=== PATIENT | female | born 1975 | race African-American/Black ===

== ENCOUNTER → 2016-09-11 | Outpatient (CLI) | payer MEDICAID ==
--- NOTE | 2016-09-12 07:52 | XCELERA REPORT ---
[address] [address] Lower Extremity Venous Evaluation Name: HEIDE GARZON Age: 40 yrs Gender: Female : 1975 Patient Status: Outpatient Patient Location: Study Date: 09/11/2016 04:29 PM Procedure: Color flow and duplex imaging of the veins of the right lower extremity as well as the left Common Femoral vein. Reason For Study: RLE PAIN Ordering Physician: NATALYA CEDENO CNM Performed By: Shagufta Knapp Right Sided Venous Evaluation Normal vessel filling wall to wall, compression and augmentation as well as Colour flow down to the infrageniculate veins. Left Sided Venous Evaluation The left common femoral vein is fully compressible. Spontaneous and phasic flow is present in the left common femoral vein. Interpretation Summary No duplex evidence of DVT or obstruction in the right lower extremity nor in the left Common Femoral vein. : NATALYA CEDENO CNM > Sid Rubio
== END ==
LOC: LC 16:26
PROVIDERS: ATTEND Advanced Practice Midwife
DX: M79.604 Pain in right leg (principal)
CPT/HCPCS: 93971

== ENCOUNTER 2017-01-19 17:03 | Emergency (ER) | payer MEDICAID ==
--- NOTE | 2017-01-19 17:28 | ER Document Report ---
ED Medical Screen (RME) - General Chief Complaint: Chest Pain Stated Complaint: CHEST PAIN/LEFT ARM PAIN Time Seen by Provider: 01/19/17 17:26 Mode of Arrival: Ambulatory Information source: Patient TRAVEL OUTSIDE OF THE [place] IN LAST 30 DAYS: No - HPI Patient complains to provider of: Chest pain, shortness of breath Onset: Other - 3 weeks Onset/Duration: Gradual, Persistent Quality of pain: Achy, Dull, Sharp, Stabbing Severity: Moderate Pain Level: 3 Associated Symptoms: Shortness of breath Exacerbated by: Denies Relieved by: Denies Similar symptoms previously: No Recently seen / treated by doctor: Yes Notes: 01/19/17 17:27 It is a 41-year-old female who presents to the emergency room complaining of left-sided chest pain that radiated down the left arm, with shortness of breath , symptoms are worse at nighttime when she is trying to lay down and sleep, pain is sharp and stabbing in nature with a dull ache as well, patient is currently 7-1/2 months , she is a smoker, she denies any abdominal pain or pelvic pain, no vaginal bleeding or discharge, she reports good movements, no recent traveling or sick contacts patient is a with a previous elective - Related Data Allergies/Adverse Reactions: No Known Allergies Allergy (Verified 01/19/17 17:05) Past Medical History Renal/ Medical History: Denies: Hx Peritoneal Dialysis Physical Exam - Vital signs Vitals: Temp Pulse Resp BP Pulse Ox 97.9 F 82 22 H 105/84 98 01/19/17 17:14 01/19/17 17:14 01/19/17 17:14 01/19/17 17:14 01/19/17 17:14 Course - Vital Signs Vital signs: Temp Pulse Resp BP Pulse Ox 97.9 F 82 22 H 105/84 98 01/19/17 17:14 01/19/17 17:14 01/19/17 17:14 01/19/17 17:14 01/19/17 17:14
[2017-01-19 19:17] LABS: ABSOLUTE EOSINOPHILS # (AUTO) 0.2 10^3/uL (0.0-0.6); ABSOLUTE LYMPHOCYTES (AUTO) 2.5 10^3/uL (0.5-4.7); ABSOLUTE MONOCYTES (AUTO) 0.5 10^3/uL (0.1-1.4); ABSOLUTE NEUT (AUTO) 4.7 10^3/uL (1.7-8.2); BASOPHILS % (AUTO) 0.3 % (0-2); EOSINOPHILS % (AUTO) 2.5 % (0-6); HEMOGLOBIN 12.1 g/dL (12.0-15.5); HGB HCT DIFFERENCE -0.7; LYMPHOCYTES % (AUTO) 31.6 % (13-45); MEAN CORPUSCULAR HEMOGLOBIN 26.8 pg (27.0-33.4); MEAN CORPUSCULAR HGB CONC 32.6 g/dL (32.0-36.0); MEAN CORPUSCULAR VOLUME 82 fl (80-97); RED BLOOD COUNT 4.51 10^6/uL (3.72-5.28); RED CELL DISTRIBUTION WIDTH 14.7 % (11.5-14.0); SEGMENTED NEUTROPHILS % (AUTO) 59.6 % (42-78); WHITE BLOOD COUNT 7.9 10^3/uL (4.0-10.5)
[2017-01-19 19:31] LABS: ALANINE AMINOTRANSFERASE 20 U/L (9-52); ALBUMIN 3.2 g/dL (3.5-5.0); ALKALINE PHOSPHATASE 66 U/L (38-126); ANION GAP 8 (5-19); ASPARTATE AMINO TRANSFERASE 12 U/L (14-36); BILIRUBIN,DIRECT 0.2 mg/dL (0.0-0.4); BILIRUBIN,TOTAL 0.3 mg/dL (0.2-1.3); BLOOD UREA NITROGEN 4 mg/dL (7-20); CALCIUM 9.4 mg/dL (8.4-10.2); CARBON DIOXIDE 20 mmol/L (22-30); CHLORIDE 109 mmol/L (98-107); CREATINE KINASE 53 U/L (30-135); CREATININE RESULT 0.57 mg/dL (0.52-1.25); GLUCOSE 99 mg/dL (75-110); POTASSIUM 3.9 mmol/L (3.6-5.0); SODIUM 136.8 mmol/L (137-145)
[2017-01-19 19:43] LABS: TROPONIN I < 0.012 ng/mL
--- NOTE | 2017-01-19 20:57 | RADIOLOGY REPORT (SQ) ---
EXAM DESCRIPTION: CTA CHEST COMPLETED DATE/TIME: 01/19/2017 8:32 pm REASON FOR STUDY: SOB COMPARISON: None. TECHNIQUE: CT scan of the chest performed using helical scanning technique with dynamic intravenous contrast injection. Images reviewed with lung, soft tissue and bone windows. Reconstructed coronal and sagittal MPR images reviewed. Additional 3 dimensional post-processing performed to develop Maximal Intensity Projection images ([place] P). All images stored on PACS. All CT scanners at this facility use dose modulation, iterative reconstruction, and/or weight based d osing when appropriate to reduce radiation dose to as low as reasonably achievable (ALARA). [facility]: Dose Right [facility]: CareDose [facility]: Dose Right [facility]: Teradose 4D [facility]: [employer] Technologies CONTRAST TYPE AND DOSE: 80 mL Isovue 370 RENAL FUNCTION: Creatinine 0.57 RADIATION DOSE: 42.61 mGy. LIMITATIONS: Study is limited somewhat due to streak artifact. There is suboptimal opacification of the pulmonary arteries FINDINGS: LUNGS AND PLEURA: No masses, infiltrates, pneumothorax. No pleural effusions, calcificati ons. AORTA AND GREAT VESSELS: No aneurysm or dissection. HEART: No pericardial effusion. PULMONARY ARTERIES: No emboli visualized in the main pulmonary arteries. Segmental branches are not well visualize due to suboptimal opacification and streak artifact. HILAR AND MEDIASTINAL STRUCTURES: No identified masses or abnormal nodes. HARDWARE: None in the chest. UPPER ABDOMEN: No significant findings. Limited exam. THYROID AND OTHER SOFT TISSUES: No masses. No adenopathy. BONES: No acute or significant finding. 3D MIPS: Confirm above findings. OTHER: No other significant finding. IMPRESSION: Somewhat limited study as noted above. No definite evidence for pulmonary embolic disea se. No consolidations or pleural effusions are identified. Other findings as noted above TECHNICAL DOCUMENTATION: JOB ID: [id number] Quality ID # [id number]: Final reports with documentation of one or more dose reduction techniques (e.g., Au tomated exposure control, adjustment of the mA and/or kV according to patient size, use of iterative reconstruction technique) 2010 [employer]- All Rights Reserved
--- NOTE | 2017-01-19 21:12 | EKG REPORT ---
SEVERITY:- NORMAL ECG - SINUS RHYTHM : Confirmed by: Mabel Harrington 19-Jan-2017 21:12:22
--- NOTE | 2017-01-19 21:13 | ER Document Report ---
ED General - General Chief Complaint: Chest Pain Stated Complaint: CHEST PAIN/LEFT ARM PAIN Time Seen by Provider: 01/19/17 17:26 Mode of Arrival: Ambulatory Information source: Patient Notes: 41-year-old female 1 para 0 who is approximately 30 weeks with her first presents with complaints of shortness of breath when she lays flat. Patient notes that she has had a bad taste in her mouth as well for the past few months. Patient denies any fevers or chills, denies any shortness of breath when she is sitting forward. Patient denies any actual chest pain. Patient does admit to tingling sensations in her thumb TRAVEL OUTSIDE OF THE [place] IN LAST 30 DAYS: No - HPI Onset: Just prior to arrival Onset/Duration: Sudden Quality of pain: No pain Severity: Mild Pain Level: Denies Associated symptoms: Shortness of breath Exacerbated by: Supine Relieved by: Denies Similar symptoms previously: No Recently seen / treated by doctor: No - Related Data Allergies/Adverse Reactions: No Known Allergies Allergy (Verified 01/19/17 17:05) Past Medical History - General Information source: Patient - Social History Smoking Status: Never Smoker Cigarette use (# per day): No Chew tobacco use (# tins/day): No Smoking Education Provided: No Family History: Reviewed & Not Pertinent Patient has suicidal ideation: No Patient has homicidal ideation: No Renal/ Medical History: Denies: Hx Peritoneal Dialysis Surgical Hx: Negative - Immunizations Hx Diphtheria, Pertussis, Tetanus Vaccination: Yes Review of Systems - Review of Systems Notes: REVIEW OF SYSTEMS: CONSTITUTIONAL : Denies fever, chills, or sweats. Denies recent illness. EENT: Denies eye, ear, throat, or mouth pain or symptoms. Denies nasal or sinus congestion or discharge. Denies throat, tongue, or mouth swelling or difficulty swallowing. CARDIOVASCULAR: Denies chest pain. Denies palpitations or racing or irregular heart beat. Denies ankle edema. RESPIRATORY: Shortness of breath GASTROINTESTINAL: Denies abdominal pain or distention. Denies nausea, vomiting , or diarrhea. Denies blood in vomitus, stools, or per rectum. Denies black, tarry stools. Denies constipation. Has a bad taste in her mouth GENITOURINARY: Denies difficulty urinating, painful urination, burning, frequency, blood in urine, or discharge. FEMALE GENITOURINARY: Denies vaginal bleeding, heavy or abnormal periods, irregular periods. Denies vaginal discharge or odor. MUSCULOSKELETAL: Denies back or neck pain or stiffness. Denies joint pain or swelling. SKIN: Denies rash, lesions or sores. HEMATOLOGIC : Denies easy bruising or bleeding. LYMPHATIC: Denies swollen, enlarged glands. NEUROLOGICAL: Denies confusion or altered mental status. Denies passing out or loss of consciousness. Denies dizziness or lightheadedness. Denies headache. Denies weakness or paralysis or loss of use of either side. Denies problems with gait or speech. Denies sensory loss, numbness, or tingling. Denies seizures. PSYCHIATRIC: Denies anxiety or stress. Denies depression, suicidal ideation, or homicidal ideation. ALL OTHER SYSTEMS REVIEWED AND NEGATIVE. Dictation was performed using [employer] voice recognition software PHYSICAL EXAMINATION: GENERAL: Well-appearing, well-nourished and in no acute distress. HEAD: Atraumatic, normocephalic. EYES: Pupils equal round and reactive to light, extraocular movements intact, conjunctiva are normal. ENT: Nares patent, oropharynx clear without exudates. Moist mucous membranes. NECK: Normal range of motion, supple without lymphadenopathy LUNGS: Breath sounds clear to auscultation bilaterally and equal. No wheezes rales or rhonchi. HEART: Regular rate and rhythm without murmurs ABDOMEN: gravid abdomen, no tenderness Female : deferred Musculoskeletal: Normal range of motion, no pitting or edema. No cyanosis. NEUROLOGICAL: Cranial nerves grossly intact. Normal speech, normal gait. Normal sensory, motor exams PSYCH: Normal mood, normal affect. SKIN: Warm, Dry, normal turgor, no rashes or lesions noted. Physical Exam - Vital signs Vitals: Temp Pulse Resp BP Pulse Ox 97.9 F 82 22 H 105/84 98 01/19/17 17:14 01/19/17 17:14 01/19/17 17:14 01/19/17 17:14 01/19/17 17:14 Course - Re-evaluation Re-evalutation: 01/19/17 23:17 Labwork CTA was performed to rule out any life-threatening issues, none were noted. It appears since this is a positional shortness of breath, that it is actually the baby pushing against the diaphragm. Patient when sitting forward has no complaints, I believe the bad taste in her mouth is secondary to gastric reflux, I will treat the patient with Pepcid for this. I believe the tingling in her finger is due to nerve impingement and patient agrees. Otherwise patient has no cardiac risk factors, she appears well is in no distress had negative workup otherwise. Patient is very happy with discharge After performing a Medical Screening Examination, I estimate there is LOW risk for ACUTE CORONARY SYNDROME, RESPIRATORY FAILURE, SEPSIS OR MENINGITIS, thus I consider the discharge disposition reasonable. I have reevaluated this patient multiple times and no significant life threatening changes are noted. The patient and I have discussed the diagnosis and risks, and we agree with discharging home with close follow-up. We also discussed returning to the Emergency Department immediately if new or worsening symptoms occur. We have discussed the symptoms which are most concerning (e.g., changing or worsening pain, trouble swallowing or breathing, neck stiffness, fever) that necessitate immediate return. - Vital Signs Vital signs: Temp Pulse Resp BP Pulse Ox 98.1 F 82 19 91/68 L 98 01/19/17 21:35 01/19/17 17:14 01/19/17 21:37 01/19/17 21:37 01/19/17 21:37 - Laboratory Result Diagrams: 01/19/17 18:50 01/19/17 18:50 Laboratory results interpreted by me: 01/19/17 01/19/17 18:50 18:50 MCH 26.8 L RDW 14.7 H Sodium 136.8 L Chloride 109 H Carbon Dioxide 20 L BUN 4 L AST 12 L Total Protein 6.0 L Albumin 3.2 L - Diagnostic Test Radiology reviewed: Image reviewed, Reports reviewed Discharge - Discharge Clinical Impression: SOB (shortness of breath) GERD (gastroesophageal reflux disease) Qualifiers: Esophagitis presence: with esophagitis Qualified Code(s): K21.0 - Gastro- esophageal reflux disease with esophagitis Condition: Stable Disposition: HOME, SELF-CARE Instructions: Reflux Disease (GERD) ([facility]) Additional Instructions: Follow up with your physician tomorrow for further care or return to the ED IMMEDIATELY if symptoms worsen or new concerns occur. If you cannot afford to follow up with your primary care physician a list of low cost clinics have been provided at the end of your discharge papers as well. Prescriptions: Famotidine [Pepcid 20 mg Tablet] 20 mg PO DAILY #60 tablet
[2017-01-19 21:44] VITALS: BP 91/68
== END 2017-01-19 21:40 | disposition home or self-care (01) ==
LOC: ER 17:03
DX: O99.619 Diseases of the digestive system complicating pregnancy, unspecified trimester (principal); K21.0 Gastro-esophageal reflux disease with esophagitis; O26.899 Other specified pregnancy related conditions, unspecified trimester; R06.02 Shortness of breath; R43.9 Unspecified disturbances of smell and taste; R20.2 Paresthesia of skin; Z3A.00 Weeks of gestation of pregnancy not specified
CPT/HCPCS: 36415; 71275; 80053; 82550; 82553; 84484; 85025; 93005; 93010; 99285

== ENCOUNTER 2017-03-06 16:26 | Outpatient (CLI) | payer MEDICAID ==
--- NOTE | 2017-03-06 17:41 | Non Stress Test Report ---
Non Stress Test Datetime Report Generated by CPN: 03/06/2017 17:41 DEMOGRAPHIC EGA NST: 36.6 INDICATION Indication for Study: Ordered by Provider; Other Indication for Study (NST) Other: ama VITAL SIGNS Temperature - NST: 98.3 Pulse - NST: 77 RESP - NST: 18 NBPSYS NST: 110 NBPDIA NST: 59 MONITORING Monitor Explained: Monitor Explained; Test Explained; Patient Verbalized Understanding Time on Monitor: 03/06/2017 16:43 Time off Monitor: 03/06/2017 17:07 NST Duration: 24 NST INTERVENTIONS NST Interventions: PO Hydration; Reposition Patient Physician Notified NST: C. Sherman CNM BABY A: [id number] BABY A Movement : Present Contraction Frequency : none FHR Baseline : 145 Accelerations : 15X15 Decelerations : None Variability : Moderate 6-25bpm NST Review: Meets Criteria for Reactive NST NST Review and Verified By : Scott Carbajal RN NST Results: Reactive NST REPORT Report Trigger: Send Report (Annotations: Data stored by N on behalf of user)
== END 2017-03-06 17:12 | disposition home or self-care (01) ==
LOC: LC 16:26
PROVIDERS: ATTEND Obstetrics & Gynecology
PROC: 4A1HXCZ Monitoring of Products of Conception, Cardiac Rate, External Approach (ICD-10-PCS; principal; 2017-03-06)
DX: O09.523 Supervision of elderly multigravida, third trimester (principal); Z3A.36 36 weeks gestation of pregnancy
CPT/HCPCS: 59025

== ENCOUNTER 2017-03-24 18:24 | Observation (INO) | payer BC, MEDICAID ==
[2017-03-24] MEDS ORDERED: MAG HYDROX/AL HYDROX/SIMETH SUSP 30 ML UDCUP PO PRN (19:37)
[2017-03-24] MEDS ORDERED: ACETAMINOPHEN 325 MG TABLET PO PRN (19:37)
[2017-03-24] MEDS ORDERED: ZOLPIDEM TARTRATE 5 MG TABLET PO PRN (19:37)
[2017-03-24] MEDS ORDERED: RINGERS SOLUTION,LACTATED 1,000 ML IV ONE (19:37)
[2017-03-24] MEDS ORDERED: RINGERS SOLUTION,LACTATED 1,000 ML IV PRN (19:37)
[2017-03-24] MEDS ORDERED: NORMAL SALINE 250 ML IV PRN (19:37)
[2017-03-24] MEDS ORDERED: DINOPROSTONE 10 MG VAGINAL INSERT.SR PV ONE (19:37)
[2017-03-24] MEDS ORDERED: DINOPROSTONE 10 MG VAGINAL INSERT.SR ONE (20:03)
[2017-03-24 20:12] LABS: ABSOLUTE EOSINOPHILS # (AUTO) 0.2 10^3/uL (0.0-0.6); ABSOLUTE LYMPHOCYTES (AUTO) 2.3 10^3/uL (0.5-4.7); ABSOLUTE MONOCYTES (AUTO) 0.6 10^3/uL (0.1-1.4); BASOPHILS % (AUTO) 0.4 % (0-2); EOSINOPHILS % (AUTO) 2.6 % (0-6); HEMATOCRIT 36.7 % (36.0-47.0); HEMOGLOBIN 12.3 g/dL (12.0-15.5); HGB HCT DIFFERENCE 0.2; LYMPHOCYTES % (AUTO) 28.4 % (13-45); MEAN CORPUSCULAR HEMOGLOBIN 27.6 pg (27.0-33.4); MEAN CORPUSCULAR HGB CONC 33.6 g/dL (32.0-36.0); MEAN CORPUSCULAR VOLUME 82 fl (80-97); RED BLOOD COUNT 4.47 10^6/uL (3.72-5.28); RED CELL DISTRIBUTION WIDTH 14.5 % (11.5-14.0); SEGMENTED NEUTROPHILS % (AUTO) 61.6 % (42-78)
[2017-03-24 21:03] LABS: APPEARANCE,URINE SLIGHTLY-CLOUDY; BILIRUBIN,URINE NEGATIVE (NEGATIVE); GLUCOSE, URINE NEGATIVE (NEGATIVE); KETONES,URINE TRACE mg/dL (NEGATIVE); LEUKOCYTE ESTERASE,URINE NEGATIVE (NEGATIVE); NITRITE,URINE NEGATIVE (NEGATIVE); PROTEIN,URINE NEGATIVE (NEGATIVE); UROBILINOGEN,URINE NEGATIVE mg/dL (<2.0)
[2017-03-24 21:18] LABS: URINE BARBITURATES SCREEN NEGATIVE; URINE METHADONE SCREEN NEGATIVE; URINE OPIATES LOW NEGATIVE; URINE PHENCYCLIDINE SCREEN NEGATIVE
[2017-03-24] MEDS ORDERED: ZOLPIDEM TARTRATE 5 MG TABLET ONE (23:59)
== END 2017-03-25 11:33 | disposition home or self-care (01) ==
LOC: UNDOADMOB 18:24 → INTOOBSV 18:24 → LR 18:24 → UNDODISOB 03-25 11:33
PROVIDERS: ADMIT Obstetrics & Gynecology; ATTEND Obstetrics & Gynecology
PROC: 4A0HXCZ Measurement of Products of Conception, Cardiac Rate, External Approach (ICD-10-PCS; principal; 2017-03-25)
PROC: 3E0P7GC Introduction of Other Therapeutic Substance into Female Reproductive, Via Natural or Artificial Opening (ICD-10-PCS; 2017-03-25)
DX: O61.9 Failed induction of labor, unspecified (principal); Z3A.39 39 weeks gestation of pregnancy
CPT/HCPCS: 59025; 86900; 86901; 36415; 86850; 85025; 81005; 86592; 80307; 86920; 59200; G0378 ×2; G0379; J3490

== ENCOUNTER 2017-03-27 10:31 | Outpatient (CLI) | payer BC, MEDICAID ==
--- NOTE | 2017-03-28 14:02 | Non Stress Test Report ---
Non Stress Test Datetime Report Generated by CPN: 03/28/2017 14:02 DEMOGRAPHIC EGA NST: 39.6 EGA NST: 39.4 INDICATION Indication for Study: Ordered by Provider Indication for Study: Ordered by Provider Indication for Study (NST) Other: AMA MONITORING Monitor Explained: Monitor Explained; Test Explained; Patient Verbalized Understanding Monitor Explained: Monitor Explained; Test Explained; Patient Verbalized Understanding Time on Monitor: 03/27/2017 10:29 Time on Monitor: 03/25/2017 10:25 Time off Monitor: 03/27/2017 10:56 Time off Monitor: 03/25/2017 10:45 NST Duration: 27 NST Duration: 20 NST INTERVENTIONS NST Interventions: None NST Interventions: IV Fluids; Reposition Patient Physician Notified NST: Dr. Garrett BABY A: [id number] BABY A Movement : Present Movement : Present Contraction Frequency : rare Contraction Frequency : x0 FHR Baseline : 155 FHR Baseline : 145 Accelerations : 15X15 Accelerations : 15X15 Decelerations : None Decelerations : None Variability : Moderate 6-25bpm Variability : Moderate 6-25bpm NST Review: Meets Criteria for Reactive NST NST Review: Meets Criteria for Reactive NST NST Review and Verified By : Scott Carbajal RN NST Results: Reactive NST Results: Reactive NST REPORT Report Trigger: Send Report
== END 2017-03-27 11:00 | disposition home or self-care (01) ==
LOC: LC 10:31
PROVIDERS: ATTEND Obstetrics & Gynecology
PROC: 4A1HXCZ Monitoring of Products of Conception, Cardiac Rate, External Approach (ICD-10-PCS; principal; 2017-03-27)
DX: O09.523 Supervision of elderly multigravida, third trimester (principal); Z3A.39 39 weeks gestation of pregnancy
CPT/HCPCS: 59025

== ENCOUNTER 2017-03-28 14:10 | Outpatient (CLI) | payer BC, MEDICAID ==
--- NOTE | 2017-03-28 14:49 | Non Stress Test Report ---
Non Stress Test Datetime Report Generated by CPN: 03/28/2017 14:48 DEMOGRAPHIC Test Number: 4 EGA NST: 40.0 INDICATION Indication for Study: Decreased Movement; Other Indication for Study (NST) Other: AMA MONITORING Monitor Explained: Monitor Explained; Test Explained; Patient Verbalized Understanding Time on Monitor: 03/28/2017 14:03 Time off Monitor: 03/28/2017 14:33 NST Duration: 30 NST INTERVENTIONS NST Interventions: None Physician Notified NST: Dr. Stewart BABY A Contraction Frequency : Occ FHR Baseline : 145 Accelerations : 15X15 Decelerations : None Variability : Moderate 6-25bpm NST Review: Meets Criteria for Reactive NST NST Review and Verified By : Jose Shepherd, RN NST Results: Reactive NST REPORT Report Trigger: Send Report
== END 2017-03-28 14:35 | disposition home or self-care (01) ==
LOC: LC 14:10
PROVIDERS: ATTEND Obstetrics & Gynecology
PROC: 4A1HXCZ Monitoring of Products of Conception, Cardiac Rate, External Approach (ICD-10-PCS; principal; 2017-03-28)
DX: O36.8130 Decreased fetal movements, third trimester, not applicable or unspecified (principal); O09.523 Supervision of elderly multigravida, third trimester; Z3A.40 40 weeks gestation of pregnancy
CPT/HCPCS: 59025

== ENCOUNTER 2017-04-05 19:40 | Inpatient (IN) | payer BC, MEDICAID ==
[2017-04-05] MEDS ORDERED: DINOPROSTONE 10 MG VAGINAL INSERT.SR ONE (19:57)
[2017-04-05 20:12] LABS: APPEARANCE,URINE SLIGHTLY-CLOUDY; BILIRUBIN,URINE NEGATIVE (NEGATIVE); GLUCOSE, URINE NEGATIVE (NEGATIVE); KETONES,URINE 20 mg/dL (NEGATIVE); LEUKOCYTE ESTERASE,URINE NEGATIVE (NEGATIVE); NITRITE,URINE NEGATIVE (NEGATIVE); PROTEIN,URINE NEGATIVE (NEGATIVE); URINE SPECIFIC GRAVITY 1.015; UROBILINOGEN,URINE NEGATIVE mg/dL (<2.0)
[2017-04-05] MEDS ORDERED: RINGERS SOLUTION,LACTATED 300 ML IV ONE (20:13)
[2017-04-05] MEDS ORDERED: DINOPROSTONE 10 MG VAGINAL INSERT.SR PV PRN (20:13)
[2017-04-05] MEDS ORDERED: ZOLPIDEM TARTRATE 5 MG TABLET PO ONE (20:15)
[2017-04-05 20:25] LABS: ABSOLUTE BASOPHILS # (AUTO) 0.1 10^3/uL (0.0-0.2); ABSOLUTE EOSINOPHILS # (AUTO) 0.3 10^3/uL (0.0-0.6); ABSOLUTE LYMPHOCYTES (AUTO) 2.3 10^3/uL (0.5-4.7); ABSOLUTE MONOCYTES (AUTO) 0.6 10^3/uL (0.1-1.4); ABSOLUTE NEUT (AUTO) 4.2 10^3/uL (1.7-8.2); BASOPHILS % (AUTO) 0.8 % (0-2); EOSINOPHILS % (AUTO) 3.6 % (0-6); HEMATOCRIT 38.8 % (36.0-47.0); HEMOGLOBIN 13.2 g/dL (12.0-15.5); HGB HCT DIFFERENCE 0.8; MEAN CORPUSCULAR HEMOGLOBIN 27.8 pg (27.0-33.4); MEAN CORPUSCULAR VOLUME 82 fl (80-97); MONOCYTES % (AUTO) 8.3 % (3-13); RED BLOOD COUNT 4.73 10^6/uL (3.72-5.28); RED CELL DISTRIBUTION WIDTH 14.5 % (11.5-14.0); SEGMENTED NEUTROPHILS % (AUTO) 56.3 % (42-78); WHITE BLOOD COUNT 7.5 10^3/uL (4.0-10.5)
[2017-04-05 20:26] LABS: URINE BARBITURATES SCREEN NEGATIVE; URINE METHADONE SCREEN NEGATIVE; URINE OPIATES LOW NEGATIVE; URINE PHENCYCLIDINE SCREEN NEGATIVE
[2017-04-05] MEDS ORDERED: ZOLPIDEM TARTRATE 5 MG TABLET ONE (21:00)
[2017-04-05] MEDS: RINGERS SOLUTION,LACTATED 1,000 ML IV PRN (21:01)
[2017-04-06] MEDS: RINGERS SOLUTION,LACTATED 1,000 ML IV PRN (03:58)
[2017-04-06] MEDS ORDERED: OXYTOCIN/NORMAL SALINE 20 UNIT/1,000 ML RTUINJ ONE (11:48)
[2017-04-06] MEDS: OXYTOCIN/NORMAL SALINE 20 UNIT/1,000 ML RTUINJ IV PRN (11:54)
[2017-04-06] MEDS ORDERED: NALBUPHINE HCL INJ 10 MG/1 ML AMPULE ONE (17:58)
[2017-04-06] MEDS ORDERED: NALBUPHINE HCL INJ 10 MG/1 ML AMPULE INJ ONE (17:58)
[2017-04-07] MEDS ORDERED: NALBUPHINE HCL INJ 10 MG/1 ML AMPULE INJ ONE (00:52)
[2017-04-07] MEDS ORDERED: NALBUPHINE HCL INJ 10 MG/1 ML AMPULE ONE (00:57)
[2017-04-07] MEDS ORDERED: PROMETHAZINE HCL INJ 25 MG/1 ML VIAL IV ONE (05:52)
[2017-04-07] MEDS ORDERED: MORPHINE SULFATE 10 MG/ML INJ IV ONE (05:52)
[2017-04-07] MEDS ORDERED: MORPHINE SULFATE 10 MG/ML INJ ONE ×2 (05:59→23:19)
[2017-04-07] MEDS ORDERED: PROMETHAZINE HCL INJ 25 MG/1 ML VIAL ONE (05:59)
[2017-04-07] MEDS ORDERED: CITRIC ACID/SODIUM CITRATE ORAL SOLN 15 ML UDCUP ONE ×2 (07:22→21:06)
[2017-04-07] MEDS ORDERED: CEFAZOLIN 2 GM/D5W RTU 2 GM/50 ML RTUPB IV ONE ×2 (07:22→21:06)
[2017-04-07 09:17] LABS: ABSOLUTE EOSINOPHILS # (AUTO) 0.1 10^3/uL (0.0-0.6); ABSOLUTE MONOCYTES (AUTO) 0.5 10^3/uL (0.1-1.4); ABSOLUTE NEUT (AUTO) 5.1 10^3/uL (1.7-8.2); BASOPHILS % (AUTO) 0.3 % (0-2); EOSINOPHILS % (AUTO) 1.2 % (0-6); HEMATOCRIT 37.1 % (36.0-47.0); HEMOGLOBIN 12.6 g/dL (12.0-15.5); HGB HCT DIFFERENCE 0.7; LYMPHOCYTES % (AUTO) 25.5 % (13-45); MEAN CORPUSCULAR HEMOGLOBIN 27.9 pg (27.0-33.4); MEAN CORPUSCULAR HGB CONC 34.1 g/dL (32.0-36.0); MEAN CORPUSCULAR VOLUME 82 fl (80-97); MONOCYTES % (AUTO) 6.7 % (3-13); RED BLOOD COUNT 4.53 10^6/uL (3.72-5.28); RED CELL DISTRIBUTION WIDTH 14.7 % (11.5-14.0); SEGMENTED NEUTROPHILS % (AUTO) 66.3 % (42-78); WHITE BLOOD COUNT 7.8 10^3/uL (4.0-10.5)
[2017-04-07] MEDS ORDERED: FENTANYL/BUPIVACAINE/NS/PF 200 MCG/100 ML RTUINJ EPI ONE ×2 (12:05→21:54)
[2017-04-07] MEDS ORDERED: BUPIVACAINE HCL 0.25 % INJ/PF (2.5 MG/1 ML) 30 ML VIAL ONE (12:05)
[2017-04-07] MEDS ORDERED: EPHEDRINE SULFATE INJ 50 MG/1 ML AMPULE ONE (12:05)
[2017-04-07] MEDS ORDERED: OXYTOCIN/NORMAL SALINE 0 UNIT/0 ML RTUINJ ONE (13:16)
[2017-04-07] MEDS: OXYTOCIN/NORMAL SALINE 20 UNIT/1,000 ML RTUINJ IV PRN (13:19)
[2017-04-07] MEDS ORDERED: ACETAMINOPHEN 325 MG TABLET ONE (18:20)
[2017-04-07] MEDS ORDERED: CITRIC ACID/SODIUM CITRATE ORAL SOLN 15 ML UDCUP PO PRN (21:31)
[2017-04-07] MEDS ORDERED: LIDOCAINE 2% INJ-PF (20 MG/ML) 10 ML AMPUL ONE (23:14)
[2017-04-07] MEDS ORDERED: OXYTOCIN/NORMAL SALINE 20 UNIT/1,000 ML RTUINJ ONE (23:18)
[2017-04-07] MEDS ORDERED: OXYTOCIN 10 UNIT/ML VIAL ONE ×2 (23:18→23:57)
[2017-04-07] MEDS ORDERED: FENTANYL CITRATE INJ/PF 100 MCG/2 ML AMPUL ONE (23:19)
[2017-04-07] MEDS ORDERED: MIDAZOLAM 2 MG/2 ML INJ ONE (23:19)
[2017-04-08] MEDS ORDERED: RINGERS SOLUTION,LACTATED 1,000 ML IV PRN (00:24)
[2017-04-08] MEDS ORDERED: OXYCODONE-ACETAMINOPHEN 5-325 MG TABLET PO PRN (00:24)
[2017-04-08] MEDS ORDERED: ACETAMINOPHEN 100 ML IV PRN (00:24)
[2017-04-08] MEDS ORDERED: PROMETHAZINE HCL INJ 25 MG/1 ML VIAL IV PRN (00:24)
[2017-04-08] MEDS ORDERED: MEASLES,MUMPS&RUBELLA VACC/PF 0.5 ML VIAL SUBCUT PRN (00:24)
[2017-04-08] MEDS ORDERED: SIMETHICONE 80 MG TAB.CHEW PO PRN (00:24)
[2017-04-08] MEDS ORDERED: DIPH/PERTUSS(ACELL)/TETANUS VAC/PF 0.5 ML SYR (>=10YO) IM PRN (00:24)
[2017-04-08] MEDS ORDERED: ACETAMINOPHEN 325 MG TABLET PO PRN (00:24)
[2017-04-08] MEDS ORDERED: OXYTOCIN/NORMAL SALINE 20 UNIT/1,000 ML RTUINJ IV PRN (00:24)
[2017-04-08] MEDS ORDERED: MEPERIDINE HCL/PF INJ 25 MG/1 ML DISP.SYRIN ONE (00:45)
[2017-04-08] MEDS ORDERED: MORPHINE SULFATE 10 MG/ML INJ ONE (01:03)
[2017-04-08] MEDS ORDERED: KETOROLAC TROMETHAMINE INJ/PF 30 MG/1 ML SDV ONE (01:05)
[2017-04-08] MEDS: MORPHINE SULFATE 10 MG/ML INJ IV PRN ×2 (01:09→01:22)
[2017-04-08] MEDS ORDERED: ACETAMINOPHEN 100 ML IV ONE (01:11)
[2017-04-08] MEDS ORDERED: MORPHINE SULFATE 10 MG/ML INJ IV PRN ×3 (01:23→04:04)
[2017-04-08] MEDS ORDERED: LIDOCAINE 1% INJ-PF (10 MG/ML) 30 ML SDV ONE (01:38)
[2017-04-08] MEDS ORDERED: MISOPROSTOL 0.2 MG TABLET ONE (01:38)
[2017-04-08] MEDS ORDERED: OXYTOCIN/NORMAL SALINE 20 UNIT/1,000 ML RTUINJ ONE (01:38)
[2017-04-08] MEDS ORDERED: OXYTOCIN 10 UNIT/ML VIAL ONE (01:39)
--- NOTE | 2017-04-08 01:56 | Delivery Summary ---
Del Sum A-C Datetime Report Generated by CPN: 04/08/2017 01:55 DELIVERY PERSONNEL DELIVERY PERSONNEL: ,[id number] Delivery Doctor:: Erma Garrett MD Anesthesiologist:: Mitchell Bloom MD GIFT SHOP CLERK:: John Monsivais CRNA Labor and Delivery Nurse:: Maryam Fitzgerald RNairline operations agent Nurse:: Nubia East RN Venereal Disease Control Head:: Maryam Fitzgerald RN Neonatal Nurse Practitioner:: FOUZIA Mosley Nursery Nurse:: Krissy Stewart RN Nursery Nurse:: Anel Suero RN Retail Zone Specialist/INFORMATION DEVELOPER: [facility] Retail Zone Specialist/INFORMATION DEVELOPER: ST Devin MATERNAL INFORMATION Delivery Anesthesia: Epidural Medications After Delivery: Pitocin Drip 20 Units/1000ml NSS; Other-Please Comment Meds After Delivery Comment: 1 bag with 40 units Pitocin Estimated Blood Loss (ml): 500 Maternal Complications: None LABOR SUMMARY EDC: 03/28/2017 00:00 No. Babies in Womb: 1 Attempted: No Labor Anesthesia: Epidural LABOR INFORMATION Reason for Induction: Post Dates Cervical Ripening Agents: Cervidil Oxytocin: Induction Group B Beta Strep: Negative Steroids Given: None Reason Steroids Not Administered: Not Applicable MEMBRANES Membranes Rupture Method: Spontaneous Rupture of Membranes: 04/06/2017 15:00 Length of Rupture (hr): 32.83 Amniotic Fluid Color: Light Meconium Amniotic Fluid Amount: Scant Amniotic Fluid Odor: Normal STAGES OF LABOR Stage 3 hr: 24 Stage 3 min: 0 VAGINAL DELIVERY Episiotomy: None Laceration Extension: N/A Laceration Type: None Laceration Repair: Not Applicable Sharps Count Correct: N/A CSECTION DELIVERY Primary Indication: Failed Induction Secondary Indication: N/A CSection Urgency: Non-Scheduled CSection Incidence: Primary Labor: Labor Elective: Nonelective CSection Incision: Lower Uterine Transverse BABY A INFORMATION Delivery Date/Time: 04/07/2017 23:50 Method of Delivery: Born in Route : No : N/A Forceps: N/A Vacuum Extraction: N/A Shoulder Dystocia : No PRESENTATION/POSITION BABY A Presentation: Cephalic Cephalic Presentation: Vertex Breech Presentation: N/A PLACENTA INFORMATION BABY A Placenta Delivery Time : 04/08/2017 23:50 Placenta Method of Delivery: Manual Removal Placenta Status: Delivered INFANT INFORMATION BABY A Gestational Age at Delivery: 41.2 Gestational Status: Late Term- 41- 41.6 Weeks Infant Outcome : Liveborn Infant Condition : Stable Sex: Female IDENTIFICATION BABY A Verification Date/Time: 04/07/2017 23:58 ID Band Number: [id number] Mother's Name Verified: Yes Infant RN Verifying Infant: SShaylee JosephFRANK cortes Additional Verifying Personnel: Deisy Olivares CNA WEIGHT/LENGTH BABY A Infant Birthweight (gm): 3010 Infant Weight (lb): 6 Weight (oz): 10 Infant Length (in): 19.25 Length (cm): 48.90 CORD INFORMATION BABY A No. Cord Vessels: 3 Nuchal Cord : N/A Cord Blood Taken: Yes-For Storage (Mom's Blood type +) Suction: Mouth; Nose ASSESSMENT BABY A Skin to Skin: No
--- NOTE | 2017-04-08 02:02 | OPERATIVE REPORT E ---
Operative Report NAME: HEIDE GARZON : 1975 AGE: 41Y DATE OF SURGERY: 04/07/2017 ROOM: LR200 PREOPERATIVE DIAGNOSES: 1. IUP at 41 weeks and 3 days. 2. Failure to progress. 3. Failed induction. POSTOPERATIVE DIAGNOSES: 1. IUP at 41 weeks and 3 days. 2. Failure to progress. 3. Failed induction. PROCEDURE PERFORMED: Low transverse hysterotomy section. SURGEON: LUANA FLOWERS M.D. ANESTHESIA: Dr. *------* with a spinal. FINDINGS: A female infant in cephalic presentation with Apgars of 9 and 9, weight 6 pounds 10 ounces, particulate meconium. COMPLICATIONS: None. ESTIMATED BLOOD LOSS: 600 mL. SPECIMENS REMOVED: None. PROCEDURE IN DETAIL: Patient was taken to the operating room, prepared and draped in a normal sterile fashion in the supine position with a leftward tilt. A transverse skin incision was made with a scalpel and carried through the underlying layer of fascia with the same scalpel. The fascia was excised in the midline and extended laterally with Galaviz. The fascia was dissected bluntly from the rectus muscle, and the rectus muscle was divided. The peritoneal cavity was entered bluntly with surgeon's finger fracture. With good visualization of the bladder and the uterus, the bladder blade was inserted and the hysterotomy was nicked with the scalpel and extended laterally with surgeon's finger fracture. The infant was then delivered atraumatically. The nose and mouth were suctioned with a suction bulb. The cord was clamped and cut, and the infant was handed off to awaiting pediatricians. The cord blood was collected. The placenta was removed manually. The uterus was exteriorized and cleared of clots and debris. It was noted at this time that there were 3 small fundal fibroids, serosal in appearance but they were hemostatic and had not suffered any ill effects of the procedure. The hysterotomy was then closed with 0 Monocryl in a running locked fashion. A second layer of the same suture was used to imbricate to ensure hemostasis. The uterus was then returned to the abdomen and the peritoneal cavity was cleared of clots and debris. The rectus muscle was reapproximated with 2-0 chromic using a mattress stitch. The fascia was closed with 0 Vicryl. The subcutaneous layer was closed with plain catgut. The skin was closed with 4-0 Vicryl. The patient tolerated the procedure well. Sponge, lap and needle counts were correct x2. Patient was taken to recovery in stable condition. DICTATING PHYSICIAN: LUANA FLOWERS M.D. [id number] PHY#: [id number] ID: [id number] JOB#: [id number] ACCT: [id number] cc:LUANA FLOWERS M.D. >
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
[2017-04-08] MEDS: OXYCODONE-ACETAMINOPHEN 5-325 MG TABLET PO PRN ×4 (02:56→21:29)
[2017-04-08] MEDS ORDERED: KETOROLAC TROMETHAMINE INJ/PF 30 MG/1 ML SDV IV SCH (06:00)
--- NOTE | 2017-04-08 09:45 | PDOC PROGRESS REPORT ---
Subjective-OB Subjective: Post Delivery Day: 1 41 year old. Denies any needs at this time, pain well controlled has not been up yet. Physical Exam (OB) Vital Signs: Temp Pulse Resp BP Pulse Ox 98.0 F 65 18 114/65 100 04/08/17 08:02 04/08/17 08:02 04/08/17 08:02 04/08/17 07:37 04/08/17 08:02 Intake & Output 04/07/17 04/08/17 04/09/17 06:59 06:59 06:59 Intake Total 200 400 Output Total 300 Balance -100 400 - Dressing Removed: No - op site Incision: Dressing - Lochia Lochia Amount: Small 10-25 ml Lochia Color: Rubra/Red - Abdomen Description: Tender, Soft, Round Hernia Present: No Fundal Description: Firm, Midline Fundal Height: u/u - u/2 Objective-Diagnostic Laboratory: 04/07/17 08:56 Assessment and Plan(PN) - Assessment and Plan (1) Status post primary low transverse section Is this a current diagnosis for this admission?: Yes Plan: routine post op care (2) Bipolar 1 disorder Is this a current diagnosis for this admission?: Yes Plan: d/c corporate planner - Time Spent with Patient Time with patient: Less than 15 minutes Critical Time spent with patient: Less than 15 minutes Medications reviewed and adjusted accordingly: Yes - Disposition Anticipated Discharge: Home Within: within 24 hours
[2017-04-08] MEDS: DOCUSATE SODIUM 100 MG CAPSULE PO SCH ×2 (10:03→18:12)
[2017-04-08] MEDS: PRENATAL VITAMIN W-O CA NO5/FE FUMARATE/FA CAPSULE PO SCH (10:03)
[2017-04-08] MEDS: KETOROLAC TROMETHAMINE INJ/PF 30 MG/1 ML SDV IV SCH ×2 (10:03→18:11)
[2017-04-08] MEDS: IBUPROFEN 800 MG TABLET PO SCH (23:27)
[2017-04-09] MEDS ORDERED: HYDROMORPHONE HCL INJ/PF 2 MG/ML AMPULE ONE (00:54)
[2017-04-09] MEDS ORDERED: HYDROMORPHONE HCL INJ/PF 2 MG/ML AMPULE INJ ONE (01:30)
[2017-04-09] MEDS: IBUPROFEN 800 MG TABLET PO SCH ×4 (05:30→23:23)
[2017-04-09] MEDS: OXYCODONE-ACETAMINOPHEN 5-325 MG TABLET PO PRN ×2 (05:32→17:24)
[2017-04-09 06:54] LABS: HEMATOCRIT 33.9 % (36.0-47.0); HEMOGLOBIN 11.3 g/dL (12.0-15.5); MEAN CORPUSCULAR HEMOGLOBIN 27.2 pg (27.0-33.4); MEAN CORPUSCULAR HGB CONC 33.2 g/dL (32.0-36.0); MEAN CORPUSCULAR VOLUME 82 fl (80-97); RED BLOOD COUNT 4.14 10^6/uL (3.72-5.28); RED CELL DISTRIBUTION WIDTH 14.4 % (11.5-14.0); WHITE BLOOD COUNT 12.1 10^3/uL (4.0-10.5)
[2017-04-09] MEDS: PRENATAL VITAMIN W-O CA NO5/FE FUMARATE/FA CAPSULE PO SCH (09:23)
[2017-04-09] MEDS: DOCUSATE SODIUM 100 MG CAPSULE PO SCH ×2 (09:23→17:24)
--- NOTE | 2017-04-09 12:58 | PDOC PROGRESS REPORT ---
Subjective-OB Subjective: Post Delivery Day: 41 year old. Denies any needs at this time. Pt doing well, no concerns. Reports regular diet with +flatus, light bleeding, voiding without difficulty. Baby not going home today. Physical Exam (OB) Vital Signs: Temp Pulse Resp BP Pulse Ox 98.6 F 78 18 146/88 H 100 04/09/17 11:28 04/09/17 11:28 04/09/17 11:28 04/09/17 11:28 04/09/17 11:28 Intake & Output 04/08/17 04/09/17 04/10/17 06:59 06:59 06:59 Intake Total 200 2378 400 Output Total 300 825 Balance -100 1553 400 - Dressing Removed: No - opsite dressing D&I, no drainage, swelling or redness noted Incision: Dressing - Lochia Lochia Amount: Small 10-25 ml Lochia Color: Rubra/Red - Abdomen Description: Tender, Soft Hernia Present: No Fundal Description: Firm, Midline Fundal Height: u/u - u/2 Objective-Diagnostic Laboratory: 04/09/17 06:31 04/09/17 06:31 WBC 12.1 H RBC 4.14 Hgb 11.3 L Hct 33.9 L MCV 82 MCH 27.2 MCHC 33.2 RDW 14.4 H Plt Count 225 Assessment and Plan(PN) - Assessment and Plan (1) Status post primary low transverse section Is this a current diagnosis for this admission?: Yes - Time Spent with Patient Time with patient: Less than 15 minutes Medications reviewed and adjusted accordingly: Yes - Disposition Anticipated Discharge: Home Within: within 24 hours
[2017-04-10] MEDS: OXYCODONE-ACETAMINOPHEN 5-325 MG TABLET PO PRN (00:04)
[2017-04-10] MEDS: IBUPROFEN 800 MG TABLET PO SCH ×2 (06:10→11:25)
[2017-04-10] MEDS: PRENATAL VITAMIN W-O CA NO5/FE FUMARATE/FA CAPSULE PO SCH (10:04)
[2017-04-10] MEDS: DOCUSATE SODIUM 100 MG CAPSULE PO SCH (10:04)
[2017-04-10 11:21] VITALS: BP 115/60
--- NOTE | 2017-04-10 12:58 | PDOC DISCHARGE SUMMARY ---
Final Diagnosis Discharge Date: 04/10/17 - Final Diagnosis (1) Bipolar 1 disorder Is this a current diagnosis for this admission?: Yes (2) Status post primary low transverse section Is this a current diagnosis for this admission?: Yes Discharge Data - Discharge Medication Home Medications: No Home Medications 04/05/17 Intrapartum Procedure(s): : Low Cervical, Transverse - Diagnosis Test Laboratory: Temp Pulse Resp BP Pulse Ox 98.2 F 72 16 115/60 100 04/10/17 11:20 04/10/17 11:20 04/10/17 11:20 04/10/17 11:20 04/10/17 11:20 04/05/17 04/05/17 04/07/17 19:59 20:10 08:56 RBC 4.73 4.53 Hgb 13.2 12.6 Hct 38.8 37.1 Urine Opiates Screen NEGATIVE 04/09/17 06:31 RBC 4.14 Hgb 11.3 L Hct 33.9 L Urine Opiates Screen - Discharge information/Instructions Discharge Activity: Activity As Tolerated, No Lifting Over 10 Pounds, No Lifting /Push/Pulling, Pelvic Rest, No tub bath Discharge Diet: Regular Disposition: HOME, SELF-CARE Follow up with: [facility] in: 1
== END 2017-04-10 13:38 | disposition home or self-care (01) | DRG 766 ==
LOC: LC 19:40 → LR 19:43 → 2S 04-08 02:35
PROVIDERS: ADMIT Student in an Organized Health Care Education/Training Program; ATTEND Student in an Organized Health Care Education/Training Program
PROC: 10D00Z1 Extraction of Products of Conception, Low, Open Approach (ICD-10-PCS; principal; 2017-04-07)
PROC: 3E0P7GC Introduction of Other Therapeutic Substance into Female Reproductive, Via Natural or Artificial Opening (ICD-10-PCS; 2017-04-07)
PROC: 3E033VJ Introduction of Other Hormone into Peripheral Vein, Percutaneous Approach (ICD-10-PCS; 2017-04-07)
DX: O48.0 Post-term pregnancy (principal); O62.0 Primary inadequate contractions; O99.334 Smoking (tobacco) complicating childbirth; F17.210 Nicotine dependence, cigarettes, uncomplicated; O99.344 Other mental disorders complicating childbirth; F31.9 Bipolar disorder, unspecified; Z3A.41 41 weeks gestation of pregnancy; Z37.0 Single live birth
CPT/HCPCS: 1961; 36415; 80307; 81005; 85025; 85027; 86592; 86850; 86900; 86901; 94799; J0131; J0690; J1170; J1885; J2175; J2250; J2270; J2300; J2550; J2590; J3010; J3490; J7120

== ENCOUNTER 2017-04-15 11:53 | Inpatient (IN) | payer BC, MEDICAID ==
[2017-04-15] MEDS ORDERED: MAGNESIUM SULFATE 4 GM/100 ML RTUPB IV ONE (12:34)
[2017-04-15 12:52] LABS: URINE BARBITURATES SCREEN NEGATIVE; URINE METHADONE SCREEN NEGATIVE; URINE OPIATES LOW NEGATIVE; URINE PHENCYCLIDINE SCREEN NEGATIVE
[2017-04-15 12:55] LABS: APPEARANCE,URINE SLIGHTLY-CLOUDY; BILIRUBIN,URINE NEGATIVE (NEGATIVE); GLUCOSE, URINE NEGATIVE (NEGATIVE); KETONES,URINE NEGATIVE (NEGATIVE); LEUKOCYTE ESTERASE,URINE SMALL (NEGATIVE); NITRITE,URINE NEGATIVE (NEGATIVE); PROTEIN,URINE 30 mg/dL (NEGATIVE); URINE SPECIFIC GRAVITY 1.009; UROBILINOGEN,URINE NEGATIVE mg/dL (<2.0)
[2017-04-15] MEDS ORDERED: HYDRALAZINE HCL INJ/PF 20 MG/1 ML SDV ONE ×2 (14:00→15:28)
[2017-04-15 15:01] LABS: ABSOLUTE EOSINOPHILS # (AUTO) 0.4 10^3/uL (0.0-0.6); ABSOLUTE LYMPHOCYTES (AUTO) 2.3 10^3/uL (0.5-4.7); ABSOLUTE MONOCYTES (AUTO) 0.4 10^3/uL (0.1-1.4); ABSOLUTE NEUT (AUTO) 3.3 10^3/uL (1.7-8.2); BASOPHILS % (AUTO) 0.7 % (0-2); EOSINOPHILS % (AUTO) 6.3 % (0-6); HEMATOCRIT 36.3 % (36.0-47.0); HEMOGLOBIN 12.4 g/dL (12.0-15.5); HGB HCT DIFFERENCE 0.9; LYMPHOCYTES % (AUTO) 36.4 % (13-45); MEAN CORPUSCULAR HEMOGLOBIN 27.7 pg (27.0-33.4); MEAN CORPUSCULAR HGB CONC 34.1 g/dL (32.0-36.0); MEAN CORPUSCULAR VOLUME 81 fl (80-97); MONOCYTES % (AUTO) 5.5 % (3-13); RED BLOOD COUNT 4.47 10^6/uL (3.72-5.28); RED CELL DISTRIBUTION WIDTH 14.7 % (11.5-14.0); SEGMENTED NEUTROPHILS % (AUTO) 51.1 % (42-78); WHITE BLOOD COUNT 6.4 10^3/uL (4.0-10.5)
[2017-04-15] MEDS ORDERED: IBUPROFEN 800 MG TABLET ONE ×2 (15:09→22:39)
[2017-04-15] MEDS ORDERED: IBUPROFEN 800 MG TABLET PO ONE (15:09)
[2017-04-15] MEDS ORDERED: HYDRALAZINE HCL INJ/PF 20 MG/1 ML SDV IV ONE (15:09)
[2017-04-15 15:14] LABS: ALANINE AMINOTRANSFERASE 32 U/L (9-52); ALBUMIN 3.2 g/dL (3.5-5.0); ALKALINE PHOSPHATASE 114 U/L (38-126); ANION GAP 9 (5-19); ASPARTATE AMINO TRANSFERASE 19 U/L (14-36); BILIRUBIN,DIRECT 0.3 mg/dL (0.0-0.4); BILIRUBIN,TOTAL 0.3 mg/dL (0.2-1.3); BLOOD UREA NITROGEN 10 mg/dL (7-20); CALCIUM 9.4 mg/dL (8.4-10.2); CARBON DIOXIDE 22 mmol/L (22-30); CHLORIDE 111 mmol/L (98-107); CREATININE RESULT 0.61 mg/dL (0.52-1.25); GLUCOSE 71 mg/dL (75-110); LDH 543 U/L (313-618); SODIUM 141.5 mmol/L (137-145); URIC ACID 4.2 mg/dL (2.5-7.0)
[2017-04-15] MEDS ORDERED: OXYCODONE-ACETAMINOPHEN 5-325 MG TABLET PO PRN ×2 (15:29)
[2017-04-15] MEDS ORDERED: CLONIDINE 0.1 MG/24 HR PATCH.TDWK TD ONE (16:00)
[2017-04-15] MEDS ORDERED: IBUPROFEN 800 MG TABLET PO PRN (20:10)
[2017-04-15] MEDS ORDERED: OXYCODONE-ACETAMINOPHEN 5-325 MG TABLET ONE (20:20)
[2017-04-16] MEDS ORDERED: ZOLPIDEM TARTRATE 5 MG TABLET PO ONE (00:42)
[2017-04-16] MEDS ORDERED: MAGNESIUM SULFATE 20 GM/500 ML RTUINJ IV PRN (01:31)
[2017-04-16] MEDS ORDERED: OXYCODONE-ACETAMINOPHEN 5-325 MG TABLET ONE (05:43)
[2017-04-16 06:50] LABS: ABSOLUTE BASOPHILS # (AUTO) 0.1 10^3/uL (0.0-0.2); ABSOLUTE EOSINOPHILS # (AUTO) 0.4 10^3/uL (0.0-0.6); ABSOLUTE LYMPHOCYTES (AUTO) 2.4 10^3/uL (0.5-4.7); ABSOLUTE MONOCYTES (AUTO) 0.5 10^3/uL (0.1-1.4); ABSOLUTE NEUT (AUTO) 3.6 10^3/uL (1.7-8.2); BASOPHILS % (AUTO) 0.9 % (0-2); EOSINOPHILS % (AUTO) 5.8 % (0-6); HEMATOCRIT 35.3 % (36.0-47.0); HEMOGLOBIN 12.2 g/dL (12.0-15.5); HGB HCT DIFFERENCE 1.3; LYMPHOCYTES % (AUTO) 34.8 % (13-45); MEAN CORPUSCULAR HEMOGLOBIN 27.9 pg (27.0-33.4); MEAN CORPUSCULAR HGB CONC 34.5 g/dL (32.0-36.0); MEAN CORPUSCULAR VOLUME 81 fl (80-97); MONOCYTES % (AUTO) 7.6 % (3-13); RED BLOOD COUNT 4.37 10^6/uL (3.72-5.28); RED CELL DISTRIBUTION WIDTH 14.5 % (11.5-14.0); SEGMENTED NEUTROPHILS % (AUTO) 50.9 % (42-78)
[2017-04-16 07:06] LABS: ALANINE AMINOTRANSFERASE 30 U/L (9-52); ALBUMIN 2.6 g/dL (3.5-5.0); ALKALINE PHOSPHATASE 92 U/L (38-126); ANION GAP 6 (5-19); ASPARTATE AMINO TRANSFERASE 16 U/L (14-36); BILIRUBIN,DIRECT 0.3 mg/dL (0.0-0.4); BILIRUBIN,TOTAL 0.3 mg/dL (0.2-1.3); BLOOD UREA NITROGEN 12 mg/dL (7-20); CALCIUM 7.5 mg/dL (8.4-10.2); CARBON DIOXIDE 22 mmol/L (22-30); CHLORIDE 110 mmol/L (98-107); CREATININE RESULT 0.75 mg/dL (0.52-1.25); GLUCOSE 89 mg/dL (75-110); LDH 493 U/L (313-618); TOTAL PROTEIN 5.3 g/dL (6.3-8.2); URIC ACID 4.5 mg/dL (2.5-7.0)
[2017-04-16] MEDS ORDERED: PROCHLORPERAZINE MALEATE 10 MG TABLET ONE (09:11)
[2017-04-16] MEDS ORDERED: ACETAMINOPHEN 325 MG TABLET ONE (09:12)
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
[2017-04-22] MEDS ORDERED: CLONIDINE 0.1 MG/24 HR PATCH.TDWK TD SCH (10:00)
--- NOTE | 2017-05-25 11:07 | PDOC DISCHARGE SUMMARY ---
General - Admit/Disc Date/PCP Admission Date/Primary Care Provider: 04/15/17 11:53 TREVER AYON MD Discharge Date: 04/25/17 - Discharge Diagnosis (1) Advanced maternal age (AMA), 40 years or greater Is this a current diagnosis for this admission?: Yes (2) Preeclampsia Is this a current diagnosis for this admission?: Yes (3) Status post primary low transverse section Is this a current diagnosis for this admission?: Yes - Additional Information Home Medications: Ibuprofen [Motrin 800 mg Tablet] 800 mg PO Q8 #90 tablet 04/10/17 Oxycodone HCl/Acetaminophen [Percocet 5-325 mg Tablet] 1 tab PO Q4HP PRN #30 tablet 04/10/17 History of Present Illness History of Present Illness: HEIDE GARZON is a 41 year old female Hospital Course Hospital Course: admitted for severe range BPs for post preEclampsia. underwent therapy with Magnesium sulfate and antihypertensives to control bps out of severe range. now stable for discharge Physical Exam - Physical Exam General appearance: PRESENT: no acute distress, cooperative - no periorbital swelling Respiratory exam: PRESENT: clear to auscultation collin Cardiovascular exam: PRESENT: RRR Extremities exam: PRESENT: +1 edema - c/w immediate state Neurological exam: PRESENT: alert Result Laboratory Results: 04/16/17 06:01 04/16/17 06:01 Plan Discharge Plan: discharge home with follow up in outpatient office setting for 1 wk for bp check and meds adjustment as needed. Time Spent: Less than 30 Minutes
== END 2017-04-16 15:36 | disposition home or self-care (01) | DRG 776 ==
LOC: LR 11:53
PROVIDERS: ADMIT Specialist; ATTEND Specialist
DX: O14.95 Unspecified pre-eclampsia, complicating the puerperium (principal); O99.335 Smoking (tobacco) complicating the puerperium; F17.210 Nicotine dependence, cigarettes, uncomplicated; Z83.3 Family history of diabetes mellitus
CPT/HCPCS: 36415; 80053; 80307; 81001; 83615; 84550; 85025; 94760; J0360; J3475; J3490; S0183

== ENCOUNTER 2017-09-05 08:18 | Emergency (ER) | payer BC, MEDICAID ==
--- NOTE | 2017-09-05 09:09 | ER Document Report ---
HPI - HPI Patient complains to provider of: Sore throat and eye irritation Onset/Duration: Persistent Pain Level: 4 Context: 41-year-old smoker contact lens wear is complaining of pink eyes with constant feeling of irritation and watering for 3 weeks. No visual changes, she did take her contacts out and has been using her glasses. No history of glaucoma. She is also complaining of left-sided sore throat for a week and a half similar to what she had last year and was treated with prednisone. No fever. no cough.. No vomiting or diarrhea. Associated Symptoms: None Exacerbated by: Denies Relieved by: Denies - EENT EENT: REPORTS: Sore Throat, Ear Pain - left ear, Eye problems - red and itch Past Medical History - General Information source: Patient - Social History Smoking Status: Current Every Day Smoker Chew tobacco use (# tins/day): No Frequency of alcohol use: None Drug Abuse: Marijuana Lives with: Family Family History: Reviewed & Not Pertinent Patient has suicidal ideation: No Patient has homicidal ideation: No - Medical History Medical History: Negative Renal/ Medical History: Denies: Hx Peritoneal Dialysis Past Surgical History: Reports: Hx Section, Hx Orthopedic Surgery - left femur osteotomy - Immunizations Hx Diphtheria, Pertussis, Tetanus Vaccination: Yes Vertical Provider Document - CONSTITUTIONAL Agree With Documented VS: Yes - obese Exam Limitations: No Limitations - INFECTION CONTROL TRAVEL OUTSIDE OF THE [place] IN LAST 30 DAYS: No - HEENT HEENT: Conjuctival Injection - collin, palprebral more than bulbar, right worse than left, PERRLA, Pharyngeal Erythema - mild. negative: Tympanic Membrane Red , Tympanic Membrane Bulging Notes: pressure right eye 19.95, pressure left 19.95, no fluorescein uptake. no ulcers. No preauricular lymph nodes. - NECK Neck: Supple - RESPIRATORY Respiratory: Breath Sounds Normal, No Respiratory Distress O2 Sat by Pulse Oximetry: 98 - CARDIOVASCULAR Cardiovascular: Regular Rate, Regular Rhythm - MUSCULOSKELETAL/EXTREMETIES Musculoskeletal/Extremeties: OLIVERIO SCOTT - NEURO Level of Consciousness: Awake, Alert, Appropriate - DERM Integumentary: Warm, Dry Course - Vital Signs Vital signs: Temp Pulse Resp BP Pulse Ox 98.8 F 84 14 154/82 H 98 09/05/17 08:23 09/05/17 08:23 09/05/17 08:23 09/05/17 08:23 09/05/17 08:23 Discharge - Discharge Clinical Impression: Sore throat Bilateral conjunctivitis Qualifiers: Conjunctivitis type: unspecified Qualified Code(s): H10.9 - Unspecified conjunctivitis Otalgia Qualifiers: Laterality: bilateral Qualified Code(s): H92.03 - Otalgia, bilateral Condition: Good Disposition: HOME, SELF-CARE Instructions: Conjunctivitis ([facility]), Sore Throat ([facility]), Acetaminophen, Use of Dyok-Oxb-Kybtiko Ibuprofen ([facility]), Ketorolac Tromethamine Eye Drops ([facility]), Eyedrop Use ([facility]) Additional Instructions: see the opthalmologist thursday to er this if worse ketorolac eye drops 1 drop three times per day both eyes for discomfort besivance eye drops 1 drop three times per day both eyes- antibiotic drop. Referrals: TRANG DURAN MD [ACTIVE STAFF] - 09/07/17
[2017-09-05] MEDS ORDERED: TETRACAINE HCL 0.5% OPH SOLN 2 ML OU ONE (09:35)
[2017-09-05] MEDS ORDERED: BESIFLOXACIN HCL 0.6% OPH SUSP 5 ML BOTTLE OU ONE (10:48)
[2017-09-05] MEDS ORDERED: KETOROLAC TROMETHAMINE 0.45% 4 DROP/0.4 ML DROPERETTE OU ONE (10:48)
[2017-09-05 11:15] VITALS: BP 137/87
== END 2017-09-05 11:13 | disposition home or self-care (01) ==
LOC: ER 08:18
DX: H10.9 Unspecified conjunctivitis (principal); H92.03 Otalgia, bilateral; J02.9 Acute pharyngitis, unspecified; F17.200 Nicotine dependence, unspecified, uncomplicated; H92.02 Otalgia, left ear
CPT/HCPCS: 99283